=== PATIENT | female | born 1995 | race Caucasian/White ===

== ENCOUNTER → 2022-05-23 11:16 | Outpatient (BNVA) | payer OTHER, MEDICAID, SELFPAY | PROVIDERS: Visit Provider Nurse Practitioner | DX: R69 Illness, unspecified (principal); Z11.52 Encounter for screening for COVID-19 | CPT/HCPCS: 87400; 87426 ==

== ENCOUNTER → 2023-01-21 15:28 | Outpatient (BNVA) | payer OTHER, MEDICAID, SELFPAY | PROVIDERS: Visit Provider Nurse Practitioner Family | DX: J02.9 Acute pharyngitis, unspecified (principal) | CPT/HCPCS: 87071; 87880 ==

== ENCOUNTER → 2024-01-19 11:22 | Outpatient (BNVA) | payer BC, SELFPAY | PROVIDERS: Visit Provider Obstetrics & Gynecology | DX: Z01.419 Encounter for gynecological examination (general) (routine) without abnormal findings (principal) | CPT/HCPCS: 87624 ==

== ENCOUNTER → 2024-02-29 08:43 | Outpatient (BNVA) | payer BC, SELFPAY | PROVIDERS: Visit Provider Obstetrics & Gynecology | DX: R10.2 Pelvic and perineal pain (principal); G89.29 Other chronic pain | CPT/HCPCS: 76830 ==

== ENCOUNTER 2024-05-29 05:48 | Day surgery (SDC) | payer BC, SELFPAY ==
--- NOTE | 2024-05-28 23:41 | P.HP_ITS ---
Same Day Surgery H&P Indication for Procedure/HPI DATE OF PROCEDURE: May 28, 2024 CHIEF COMPLAINT/INDICATIONFOR SURGICAL PROCEDURE: pelvic pain PREOP DIAGNOSIS: pelvic pain PLANNED PROCEDURE: Operation Date: 05/29/24 07:00 Proposed Procedures p Laparoscopy 48660,R10.2(Not Applicable) - Juanpablo Parmar MD 28 y.o. c/o nine-month history of pelvic pain now for laparoscopy Medications/Allergies* Home Medications ?Medication ?Instructions ?Recorded ?Confirmed ?Type tirzepatide 05/28/24 History Allergies/Adverse Reactions Allergy/AdvReac Type Severity Reaction Status Date / Time No Known Allergies Allergy Verified 03/23/24 07:55 Pertinent History/Comorbid Conditions* Family History (Updated 03/23/24 @ 07:56 by Tressa Mccann [facility]) Diabetes Mother Grandfather Stroke Grandmother Denies family history of Colon cancer Ovarian cancer Heart disease Breast cancer Hypertension Uterine cancer Thyroid disease Social History Smoking and tobacco/nicotine status: former use of tobacco/nicotine (Quit 2020) Pertinent Exam Findings alert, oriented x 3, clear to auscultation bilaterally and regular rate & rhythm Pertinent Data Pap 01-19-24 NILM, negative HPV Pelvic sono 02-29-24 normal Recommendations Surgery/Procedure today Coding Level of Care Code Acute Code for Chg Fwd
[2024-05-29] VITALS (10 sets, daily range): BP systolic 98–106; BP diastolic 48–74; PULSE 66–78; RESP 16–18; TEMP 36.1–36.6; O2SAT 97–100; BMI 26.9
--- NOTE | 2024-05-29 03:16 | ANES.PREANE2 ---
Pre-Anesthetic Assessment Height/Weight: Height 5 ft 3 in Preop Diagnosis: pelvic pain Operation Date: 05/29/24 07:00 Proposed Procedures p Laparoscopy 65283,R10.2(Not Applicable) - Juanpablo Parmar MD Anesthetic Plan Other: No prior issues with anesthesia NPO since yesterday evening Denies any cardiac or pulmonary issues test? METs Plan for general anesthesia Medications/Allergies Home Medications ?Medication ?Instructions ?Recorded ?Confirmed ?Last Taken ?Type tirzepatide 05/28/24 05/18/24 History Allergies Allergy/AdvReac Type Severity Reaction Status Date / Time No Known Allergies Allergy Verified 03/23/24 07:55 [facility] Anesthesia Family History (Updated 03/23/24 @ 07:56 by Tressa Mccann CMA) Mother Diabetes Grandfather Diabetes Grandmother Stroke Denies family history of Colon cancer Ovarian cancer Heart disease Breast cancer Hypertension Uterine cancer Thyroid disease Social History Smoking and tobacco/nicotine status: former use of tobacco/nicotine (Quit 2020) Female Reproductive History Date of last menstrual period: 05/08/24 Data Anesthesia Cardiac Studies: No Data to Display
[2024-05-29 06:23] LABS: OR HCG Qualitative Urine Negative (Negative)
[2024-05-29] MEDS: sodium chloride 0.9% 1,000 ML 30 ML IV (06:34)
--- NOTE | 2024-05-29 06:50 | W.PM.OPSUD ---
Surgery/Procedure H&P Update DATE OF PROCEDURE: May 29, 2024 DATE H&P PERFORMED: 05/28/24 H&P UPDATE INFORMATION: I have reviewed H&P completed within last 30 days, I have examined patient prior to procedure and No changes to prior documentation PREOP DIAGNOSIS: pelvic pain PLANNED PROCEDURE: Operation Date: 05/29/24 07:00 Proposed Procedures p Laparoscopy 72570,R10.2(Not Applicable) - Juanpablo Parmar MD
--- NOTE | 2024-05-29 07:43 | PC.NURSE ---
Chlamydia/Gonorrhea Spoke with Anjali in Lab regarding chlamydia/gonorrhea testing on abdominal body fluid. Order placed per her instructions.
[2024-05-29] MEDS: oxyCODONE-APAP 5-325 mg Tablet 1 TAB PO (09:02)
--- NOTE | 2024-05-29 09:05 | PM.OP ---
Operative Report Date of procedure: May 29, 2024 Pre-op diagnosis: chronic pelvic pain Post-op diagnosis: same Post-op findings: Normal uterus and ovaries Bilateral fallopian tubes appear edematous, swollen, with clubbed fimbriae Small amount of posterior cul-de-sac fluid Normal pelvis otherwise No evidence of endometriosis Procedure done: laparoscopy Implants: none Specimens removed/disposition: cul-de-sac fluid, sent for GC and chlamydia culture Surgeon: Juanpablo Parmar MD Anesthesia: General Estimated blood loss (mL): 0 Complications: none Findings: Normal uterus and ovaries Bilateral fallopian tubes appear edematous, swollen, with clubbed fimbriae Small amount of posterior cul-de-sac fluid Normal pelvis otherwise No evidence of endometriosis Condition: stable Disposition: PACU Brief History: 29 y.o. with chronic pelvic pain x 9 months Procedure: Informed consent obtained. The patient was taken to the OR and placed supine on the table. General endotracheal anesthesia was given. The abdomen and perineum were prepped and draped in usual fashion. A 5 mm subumbilical skin incision was made. A laparoscopic trocar with sheath was inserted into the peritoneal cavity under direct vision with the laparoscope. Pneumoperitoneum was achieved. Two separate 5 mm incisions were made in the right and left mid-abdominal quadrants under direct visualization to accommodate additional trocars and sheaths. The pelvis was explored with the laparoscope. Normal uterus and ovaries were seen. Both fallopian tubes appear swollen with clubbed fimbriae. No abnormalities were seen in the utero-ovarian ligaments, broad ligaments, anterior and posterior cul-de-sacs and pelvic side-duncan. No white or red lesions, fenestrations, or vascular abnormalities were seen. There were no stellate lesions or fibrosis/adhesions seen. The posterior culd-de-sac had small amount of serosanguinous fluid. 5 cc of the fluid was aspirated and sent for GC and chlamydia culture. No bleeding was seen The liver edge was visualized and was normal. The remainder of the pelvis was again examined and seen to be normal. All instruments were then removed from the abdominal cavity after the pneumoperitoneum was allowed to escape. The skin incisions were closed with 4-O monocryl. Dermabond was applied. The patient was then awakened and taken to the recovery room in good condition. Postop condition stable. EBL 0 cc. There were no complications.
--- NOTE | 2024-05-29 09:20 | ANE.PACU2 ---
Inpatient post-anesthesia follow up: Airway intact: Yes Vital signs: Temperature 97 F Pulse Rate 72 Respiratory Rate 18 Blood Pressure 102/63 Pulse Oximetry 99 Oxygen Delivery Me thod Room Air Oxygen Flow Rate Fraction of Inspir ed Oxygen Hydration adequate: Yes Nausea and vomiting: No Pain level: 1 Mental status: Baseline
== END 2024-05-29 09:20 | disposition home or self-care (01) ==
PROVIDERS: Student in an Organized Health Care Education/Training Program; PCP Obstetrics & Gynecology; Visit Provider Obstetrics & Gynecology
PROC: (CPT 49320; principal; 2024-05-29 07:00)
DX: N83.8 Other noninflammatory disorders of ovary, fallopian tube and broad ligament (principal); R10.2 Pelvic and perineal pain; G89.29 Other chronic pain; Q23.81 Bicuspid aortic valve; Z87.891 Personal history of nicotine dependence
CPT/HCPCS: 49322; 81025; 87081; J0330; J1100; J1200; J1885; J2250; J2405; J2704; J3010; J3490; J7030; J9999